=== PATIENT | female | born 1965 ===

== ENCOUNTER 2023-11-16 11:08 | Outpatient (RCR) | payer OTHER, SELFPAY ==
--- NOTE | 2023-11-16 11:57 | PTOPEVAL1 ---
Assessment and note entered by John Jimenes Evaluation Information Assessment Status Evaluation ICD-10 Condition Codes (PT) Pain in low back M54.50,M54.16 Onset 11/05/23 Subjective Information Pt. reports that she has had years of low back pain. She reports that the pain has progressed into the right leg over the years. She states that she has a constant numbness over her toes. She states that she gets cramps in the legs and feet at night, that makes sleep difficult. She describes a throbbing pain in the l.e. She states that she has noticed that she is occasionally stumbling over her right toe. She does recall 1 fall in the past week. She states that pain is worsened after getting up from a seated position. She reports that nothing specifically gives her relief from the pain and numbness. She states that she takes Gabapentin and Celebrex for pain. She reports that her goal is to reduce her low back pain. Reported Pain Level Pain Score 7: Self Report Assessment PT Clinical Summary Pt. is a 58 year old female who enters the clinic with low back pain and lumbar radiculopathy. She presents with right l.e. weakness, impaired gait increasing fall risk, impaired functional mobility , impaired flexibility and pain. Continued skilled PT is indicated in order to improve these areas to allow the pt. to be able to complete all IADL's without improved safety and comfort. Plan of Care Interventions Electrical Stimulation,Gait Training,Hot Pack/Cold Pack,Manual Therapy,Neuro Re-education,Patient/ Caregiver Educati,Therapeutic Activities, Therapeutic Exercise PT Services Indicated Yes Treatment Frequency and 3x/week x 12 visits Duration These treatments will address the objective and functional deficits as defined above. The patient will be advanced safely and appropriately in order for the patient to progress towards his/her prior level of function. Additional exercises will be introduced and as well as a comprehensive home exercise program upon discharge, if needed, ?to ensure carryover of functional gains achieved in the clinic. This treatment plan has been reviewed and agreement upon by the patient.
--- NOTE | 2023-11-16 11:58 | OPREHPOC ---
Outpatient Therapy Plan of Care This is a Multidisciplinary Plan of Care that may contain components documented by all disciplines (PT, OT, and ST.) PT Problem 1 PT Problem #1 Knowledge Deficit PT Goal 1 Goal / Goal Update Pt. will be independent with a HEP addressing core strength and trunk mobility. Target Visit 2 PT Problem 2 PT Problem #2 Impaired Range of Motion PT Goal 1 Goal / Goal Update Pt. will be able to safely reach to the floor to lift small object with proper body mechanics. Pt. will present with good lower and upper abdominal strength with Jimmy method of testing. Target Visit 12 PT Problem 3 PT Problem #3 Impaired Gait PT Goal 1 Goal / Goal Update Pt. will demonstrate ability to maintain SLS on the right for 30 seconds w/o LOB in order to improve stability during right stance phase of gait. Target Visit 12 PT Problem 4 PT Problem #4 Impaired Functional Mobil PT Goal 1 Goal / Goal Update Pt. will present with less than 20% limitation on the Oswestry indicating significant functional improvement. Target Visit 12
--- NOTE | 2023-11-23 10:11 | PCPTNOTE ---
Patient did not show up for scheduled appointment this date.
--- NOTE | 2023-11-26 10:16 | PCPTNOTE ---
Addendum entered by Ainsley Cotter, HOIST WORKER 11/26/23 10:47: Patient rescheduled for later in the day (11/26/23) Original Note: No call, no show. Voicemail left for patient to reschedule.
--- NOTE | 2023-12-15 14:58 | PTOPDC ---
Assessment and note entered by Jeanette Patel DPT Evaluation Information Assessment Status Progress ICD-10 Condition Codes (PT) Pain in low back M54.50,M54.16 Onset 11/05/23 Subjective Information patient reports no improvements since starting PT. she reports radiating pain is still present. she reports she does her HEP but not 2x a day. she reports she does have a follow up appointment scheduled with MD Reported Pain Level Pain Score 7: Self Report Assessment PT Clinical Summary Nichelle has been seen for 10 visits of skilled PT but did not meet any goals beside home exercise program. she continues to demonstrate decreased R LE, decreased R SLS balance and core weakness with lifting, standing and walking. she would benefit from further imagining to determine next steps in care. she will be discharged at this time. Plan of Care PT Services Indicated No
== END 2023-12-15 15:41 | disposition home or self-care (01) ==
LOC: CHSPT 11:08
DX: M54.16 Radiculopathy, lumbar region (principal); M54.89 Other dorsalgia; M51.36 Other intervertebral disc degeneration, lumbar region; E11.9 Type 2 diabetes mellitus without complications
CPT/HCPCS: 97012; 97014; 97110; 97140; 97161; G0283